=== PATIENT | female | born 1935 ===

== ENCOUNTER 2018-08-17 09:41 | Inpatient (IN) | payer OTHER ==
[~2018-08-17] VITALS: Ht 172.7 cm; Wt 85.7 kg
[2018-08-29] MEDS ORDERED: CARDIZEM CD180 MG PO (10:08)
[2018-08-29] MEDS ORDERED: LOSARTAN-HCTZ1 EAC1 PO (10:08)
[2018-08-29] MEDS ORDERED: GLUCOPHAGE XR500 MG PO (10:09)
[2018-08-29] MEDS ORDERED: LEVO-T25 MCG PO (10:09)
[2018-08-29] MEDS ORDERED: ALDACTONE25 MG PO (10:09)
[2018-08-29] MEDS ORDERED: ZOCOR40 MG PO (10:10)
== END 2018-09-13 16:39 | disposition home or self-care (01) | DRG 330 ==
LOC: SURH 09-05 09:15 → O/R 09-05 10:03 → SURG 09-05 10:03 → SURH 09-05 13:00 → SURG 09-05 18:51
PROVIDERS: Colon & Rectal Surgery
PROC: 07TC4ZZ Resection of Pelvis Lymphatic, Percutaneous Endoscopic Approach (ICD-10-PCS; 2018-09-05)
PROC: 0D1B4Z4 Bypass Ileum to Cutaneous, Percutaneous Endoscopic Approach (ICD-10-PCS; 2018-09-05)
PROC: 0DTP4ZZ Resection of Rectum, Percutaneous Endoscopic Approach (ICD-10-PCS; 2018-09-05)
PROC: 0DJD8ZZ Inspection of Lower Intestinal Tract, Via Natural or Artificial Opening Endoscopic (ICD-10-PCS; 2018-09-05)
PROC: 0DTN4ZZ Resection of Sigmoid Colon, Percutaneous Endoscopic Approach (ICD-10-PCS; principal; 2018-09-05 13:00)
PROC: 3E0F7GC Introduction of Other Therapeutic Substance into Respiratory Tract, Via Natural or Artificial Opening (ICD-10-PCS; 2018-09-06)
PROC: 30233N1 Transfusion of Nonautologous Red Blood Cells into Peripheral Vein, Percutaneous Approach (ICD-10-PCS; 2018-09-07)
PROC: 4A12X4Z Monitoring of Cardiac Electrical Activity, External Approach (ICD-10-PCS; 2018-09-10)
DX: D12.7 Benign neoplasm of rectosigmoid junction (principal); N17.8 Other acute kidney failure; J98.11 Atelectasis; D62 Acute posthemorrhagic anemia; B18.2 Chronic viral hepatitis C; I48.0 Paroxysmal atrial fibrillation; I10 Essential (primary) hypertension; E11.9 Type 2 diabetes mellitus without complications; E03.8 Other specified hypothyroidism; Z86.010 Personal history of colon polyps; Z85.048 Personal history of other malignant neoplasm of rectum, rectosigmoid junction, and anus; Z79.01 Long term (current) use of anticoagulants; Z95.0 Presence of cardiac pacemaker